=== PATIENT | female | born 1990 ===

== ENCOUNTER 2022-09-25 03:31 | Inpatient (IN) | payer OTHER ==
[2022-09-25] VITALS (15 sets, daily range): BP systolic 75–136; BP diastolic 41–78
[~2022-09-25] VITALS: Ht 167.6 cm; Wt 97.7 kg
[2022-09-25 03:44] LABS: BASOPHILS ABSOLUTE AUTO 0.03 K/mm3 (0.00-0.23); BASOPHILS PERCENT AUTO 0 % (0-2); EOSINOPHILS ABSOLUTE AUTO 0.04 K/mm3 (0.00-0.68); EOSINOPHILS PERCENT AUTO 0 % (0-6); IMMATURE GRAN ABSOLUTE AUTO 0.09 K/mm3 (0.00-0.10); IMMATURE GRAN PERCENT AUTO 1 % (0-1); LYMPHOCYTES ABSOLUTE AUTO 2.24 K/mm3 (0.84-5.20); LYMPHOCYTES PERCENT AUTO 15 % (21-46); MONOCYTES PERCENT AUTO 5 % (4-13); Mean Corpuscular HGB 28.5 pg (26.0-34.0); Mean Corpuscular HGB Conc 33.3 g/dL (31.5-36.5); Mean Corpuscular Volume 86 fL (80-100); NEUTROPHILS ABSOLUTE AUTO 12.23 K/mm3 (1.96-9.15); NEUTROPHILS PERCENT AUTO 79 % (41-73); Platelet Count 391 K/mm3 (150-400); RDW Coefficient Variation 13.8 % (11.7-14.2); RDW Standard Deviation 43.1 fL (35.1-46.3); Red Blood Cell Count 4.56 M/mm3 (3.80-5.20); White Blood Cell Count 15.43 K/mm3 (4.00-11.30)
[2022-09-25 05:09] LABS: PCO2 Cord - Arterial 52.7 mmHg (40-50); PO2 Cord - Arterial 16.1 mmHg (16-20); pH Cord - Arterial 7.27 (7.28-7.35)
[2022-09-25 05:11] LABS: PCO2 Cord - Venous 41.2 mmHg (40-50); PO2 Cord - Venous 27.2 mmHg (28-32); pH Umbilical Cord - Venous 7.36 (7.26-7.35)
--- NOTE | 2022-09-25 05:26 | NUR ---
09/25/22 0526 Vel Edwards CORD SENT WITH RT. CORD BLOOD GIVEN TO L&D RN.
[2022-09-26 00:36] VITALS: BP 123/78
[2022-09-26 05:15] VITALS: BP 115/69
[2022-09-26 06:50] LABS: BASOPHILS ABSOLUTE AUTO 0.04 K/mm3 (0.00-0.23); BASOPHILS PERCENT AUTO 0 % (0-2); EOSINOPHILS ABSOLUTE AUTO 0.28 K/mm3 (0.00-0.68); EOSINOPHILS PERCENT AUTO 2 % (0-6); Hematocrit 34.4 % (33.0-51.0); Hemoglobin 11.2 g/dL (11.5-16.0); IMMATURE GRAN ABSOLUTE AUTO 0.09 K/mm3 (0.00-0.10); IMMATURE GRAN PERCENT AUTO 1 % (0-1); LYMPHOCYTES ABSOLUTE AUTO 1.59 K/mm3 (0.84-5.20); LYMPHOCYTES PERCENT AUTO 13 % (21-46); MONOCYTES ABSOLUTE AUTO 0.76 K/mm3 (0.16-1.47); MONOCYTES PERCENT AUTO 6 % (4-13); Mean Corpuscular HGB 28.4 pg (26.0-34.0); Mean Corpuscular HGB Conc 32.6 g/dL (31.5-36.5); Mean Corpuscular Volume 87 fL (80-100); NEUTROPHILS ABSOLUTE AUTO 9.58 K/mm3 (1.96-9.15); NEUTROPHILS PERCENT AUTO 78 % (41-73); Platelet Count 307 K/mm3 (150-400); RDW Coefficient Variation 14.2 % (11.7-14.2); RDW Standard Deviation 45.1 fL (35.1-46.3); Red Blood Cell Count 3.95 M/mm3 (3.80-5.20); White Blood Cell Count 12.34 K/mm3 (4.00-11.30)
[2022-09-26 07:38] VITALS: BP 121/63
[2022-09-26 11:21] VITALS: BP 115/74
[2022-09-26 16:20] VITALS: BP 126/70
[2022-09-26 19:25] VITALS: BP 123/58
[2022-09-27 00:45] VITALS: BP 130/70
[2022-09-27 06:27] VITALS: BP 130/55
[2022-09-27 08:03] VITALS: BP 120/75
[2022-09-27] MEDS ORDERED: IBUP800 PO (08:46)
[2022-09-27] MEDS ORDERED: Percocet 5-3251 EACH PO (08:46)
[2022-09-27] MEDS ORDERED: DOCU100 PO (08:47)
[2022-09-27 11:12] VITALS: BP 124/84
--- NOTE | 2022-09-27 11:22 | NUR ---
dc instructions done, pt ready to dc home after feeding baby. just need to match bands and remove hugs tag. all questions answered, sending donor milk home at request of dr lopez, 2 120cc bottles and 1 bottle 60cc bottle thawed.
--- NOTE | 2022-09-27 11:48 | NUR ---
READY TO DC HOME, NEEDS BANDS MATCHED.
== END 2022-09-27 12:22 | disposition home or self-care (01) | DRG 788 ==
LOC: BC 03:31
PROVIDERS: Advanced Practice Midwife; ADMIT Obstetrics & Gynecology
PROC: 4A033R1 Measurement of Arterial Saturation, Peripheral, Percutaneous Approach (ICD-10-PCS; 2022-09-25)
PROC: 10D00Z1 Extraction of Products of Conception, Low, Open Approach (ICD-10-PCS; principal; 2022-09-25 07:30)
DX: O48.0 Post-term pregnancy (principal); O32.1XX0 Maternal care for breech presentation, not applicable or unspecified; Z3A.40 40 weeks gestation of pregnancy; Z37.0 Single live birth
CPT/HCPCS: 36415; 82803; 85025; 86850; 86900; 86901; A9270; J0690; J1885; J2371; J2405; J2590; J2765; J3010; J7120